=== PATIENT | male | born 1935 | race Caucasian/White ===

== ENCOUNTER 2018-05-07 10:53 | Observation (INO) ==
--- NOTE | 2018-05-07 11:21 | ED ---
HPI General Chief complaint: Chest Pain Stated complaint: Chest pain/sent by doctor Time Seen by Provider: 05/07/18 11:01 Source: patient Mode of arrival: ambulatory Limitations: no limitations History of Present Illness HPI narrative: This 83-year-old male says he been having some left-sided chest pain. In the last 2 days he said about 3 episodes of the pain. Sometimes it lasts a minute sometimes it lasts a little bit more. He is not really noticed anything that brings it on. It is a left-sided chest pain. He has not noted to to be pleuritic. He has noted some swelling of his legs for the past 2 days. He has been feeling a little more short of breath than usual. He has been a smoker in the past but does not smoke for a while. He does have a history of aortic valve replacement in 2001. He went to the doctor's appointment this morning and they did an EKG which showed atrial flutter and he was told to come here. He is not having the pain now Related Data Home Medications Medication Instructions Recorded Confirmed amlodipine 10 mg PO DAILY 05/07/18 05/07/18 aspirin 81 mg PO DAILY 05/07/18 05/07/18 losartan 100 mg PO DAILY 05/07/18 05/07/18 metoprolol tartrate 50 mg PO BID 05/07/18 05/07/18 omega 0-fqt-zhf-fish oil [[place]-3] 1 cap PO DAILY 05/07/18 05/07/18 potassium chloride 8 meq PO DAILY 05/07/18 05/07/18 pravastatin 20 mg PO DAILY 05/07/18 05/07/18 ranitidine HCl [Zantac] 150 mg PO BID 05/07/18 05/07/18 spironolactone 25 mg PO DAILY 05/07/18 05/07/18 terazosin 2 mg PO DAILY 05/07/18 05/07/18 warfarin 5 mg PO DAILY 05/07/18 05/07/18 Allergies Allergy/AdvReac Type Severity Reaction Status Date / Time Iodine and Iodide Containing Allergy Severe Anaphylaxis Verified 05/07/18 11:11 Produc shellfish derived Allergy Severe Anaphylaxis Verified 05/07/18 11:11 Review of Systems ROS: all other systems reviewed are negative Respiratory Reports dyspnea PMFSH Medical History Medical History GERD (gastroesophageal reflux disease) (Acute) Heart murmur (Acute) High cholesterol (Acute) Hypertension (Acute) Surgical History Surgical History Aortic valve replaced (Acute) Social History Social History Substance History: No History of Abuse Second Hand Smoke Exposure: No Smoking Status: Former smoker How Often Do You Have a Drink Containing Alcohol: Monthly or less Recent Travel in [facility] within the Last 8 Weeks: Yes Recent Out of Country Travel within the Last 8 Weeks: No Exam Narrative Exam Narrative: GENERAL: Well-developed male SKIN: Focused skin assessment warm/dry. HEAD: Atraumatic. Normocephalic. EYES: Pupils equal and round. No scleral icterus. No injection or drainage. ENT: No nasal bleeding or discharge. Mucous membranes pink and moist. NECK: Trachea midline. No JVD. CARDIOVASCULAR: Irregular rate and rhythm. No murmur appreciated. RESPIRATORY: No accessory muscle use. Clear to auscultation. Breath sounds equal bilaterally. GASTROINTESTINAL: Abdomen soft, non-tender, nondistended. Hepatic and splenic margins not palpable. MUSCULOSKELETAL: No obvious deformities. No clubbing. No cyanosis. Trace edema. NEUROLOGICAL: Awake and alert. No obvious cranial nerve deficits. Motor grossly within normal limits. Normal speech. PSYCHIATRIC: Appropriate mood and affect; insight and judgment normal. Course Initial Documented Vital Signs Temperature 97.3 F L 05/07/18 11:11 Pulse Rate 56 L 05/07/18 11:11 Respiratory Rate 18 05/07/18 11:11 Blood Pressure 168/72 H 05/07/18 11:11 Pulse Oximetry 98 05/07/18 11:11 Last Documented Vital Signs Temperature 97.3 F L 05/07/18 11:11 Pulse Rate 56 L 05/07/18 14:31 Respiratory Rate 18 05/07/18 14:31 Blood Pressure 156/80 H 05/07/18 14:31 Pulse Oximetry 96 05/07/18 14:31 Medical Decision Making MDM Narrative Medical decision making narrative: This gentleman has history of aortic valve replacement. He has been having some chest discomfort for the last couple of days which is left-sided. The pain lasts from a minute to 15 minutes. It is not exertional. It is somewhat atypical but I feel the patient should be further evaluated. His EKG shows atrial flutter with a controlled rate. He is on metoprolol and warfarin. His Coumadin level is therapeutic. He will be admitted to the chest pain center Medical Screen Exam Complete: Yes Emergency Medical Condition: Yes Differential Diagnosis Differential Diagnosis: Differential includes coronary artery disease, chest wall pain, GERD Lab Data Result diagrams: 05/07/18 11:55 05/07/18 11:55 Lab Results 05/07/18 05/07/18 05/07/18 Range/Units 11:47 11:55 11:55 CBC w Diff Auto diff final WBC 5.3 (4.0-11.0) th/mm3 RBC 3.87 L (4.50-5.90) mil/mm3 Hgb 12.0 L (13.0-17.0) gm/dL Hct 35.9 L (39.0-51.0) % MCV 92.9 (80.0-100.0) fL MCH 31.0 (27.0-34.0) pg MCHC 33.3 (32.0-36.0) % RDW 13.5 (11.6-17.2) % Plt Count 171 (150-450) th/mm3 MPV 8.2 (7.0-11.0) fL Neut % (Auto) 69.9 (16.0-70.0) % Lymph % (Auto) 15.2 (9.0-44.0) % [place] % (Auto) 10.3 H (0.0-8.0) % Eos % (Auto) 3.6 (0.0-4.0) % Baso % (Auto) 1.0 (0.0-2.0) % Neut # (Auto) 3.7 (1.8-7.7) th/mm3 Lymph # (Auto) 0.8 L (1.0-4.8) th/mm3 [place] # (Auto) 0.5 (0.0-0.9) th/mm3 Eos # (Auto) 0.2 (0.0-0.4) th/mm3 Baso # (Auto) 0.1 (0.0-0.2) th/mm3 WBC Differential . Differential Comment . PT (9.8-11.6) sec INR Ratio Sodium (136-145) meq/L Potassium (3.5-5.1) meq/L Chloride (98-107) meq/L Carbon Dioxide (21.0-32.0) meq/L Anion Gap (5-15) meq/L BUN (7-18) mg/dL Creatinine (0.60-1.30) mg/dL Estimated GFR (>89) mL/min Random Glucose (74-106) mg/dL Calcium (8.5-10.1) mg/dL Total Bilirubin (0.2-1.0) mg/dL AST (15-37) U/L ALT (12-78) U/L Alkaline Phosphatase (45-117) U/L Troponin I (0.02-0.05) ng/mL B-Natriuretic Peptide 124 H (0-100) pg/mL Total Protein (6.4-8.2) g/dL Albumin (3.4-5.0) g/dL Ur Collection Type Clean catch Urine Color Straw (Yellw/Straw) Urine Clarity Clear (Clear) Urine pH 6.5 (5.0-8.5) Ur Specific [place] Less/equal 1.005 (1.002-1.035) Urine Protein Negative (Neg-Trace) mg/dL Urine Glucose (UA) Negative (Negative) mg/dL Urine Ketones Negative (Negative) mg/dL Urine Occult Blood Trace (Negative) Urine Nitrate Negative (Negative) Urine Bilirubin Negative (Negative) Urine Urobilinogen 0.2 (Less than 2) mg/dL Ur Leukocyte Esterase Negative (Negative) Urine RBC 0-3 (0-3) /hpf Ur Squamous Epith Cells 0-5 (0-5) /hpf Ur Microscopic Review Microscopic reviewed 05/07/18 05/07/18 Range/Units 11:55 11:55 CBC w Diff WBC (4.0-11.0) th/mm3 RBC (4.50-5.90) mil/mm3 Hgb (13.0-17.0) gm/dL Hct (39.0-51.0) % MCV (80.0-100.0) fL MCH (27.0-34.0) pg MCHC (32.0-36.0) % RDW (11.6-17.2) % Plt Count (150-450) th/mm3 MPV (7.0-11.0) fL Neut % (Auto) (16.0-70.0) % Lymph % (Auto) (9.0-44.0) % [place] % (Auto) (0.0-8.0) % Eos % (Auto) (0.0-4.0) % Baso % (Auto) (0.0-2.0) % Neut # (Auto) (1.8-7.7) th/mm3 Lymph # (Auto) (1.0-4.8) th/mm3 [place] # (Auto) (0.0-0.9) th/mm3 Eos # (Auto) (0.0-0.4) th/mm3 Baso # (Auto) (0.0-0.2) th/mm3 WBC Differential Differential Comment PT 30.5 H (9.8-11.6) sec INR 3.0 Ratio Sodium 140 (136-145) meq/L Potassium 4.0 (3.5-5.1) meq/L Chloride 106 (98-107) meq/L Carbon Dioxide 24.6 (21.0-32.0) meq/L Anion Gap 9 (5-15) meq/L BUN 27 H (7-18) mg/dL Creatinine 1.50 H (0.60-1.30) mg/dL Estimated GFR 45 L (>89) mL/min Random Glucose 94 (74-106) mg/dL Calcium 8.5 (8.5-10.1) mg/dL Total Bilirubin 0.9 (0.2-1.0) mg/dL AST 26 (15-37) U/L ALT 34 (12-78) U/L Alkaline Phosphatase 74 (45-117) U/L Troponin I 0.03 (0.02-0.05) ng/mL B-Natriuretic Peptide (0-100) pg/mL Total Protein 6.9 (6.4-8.2) g/dL Albumin 3.6 (3.4-5.0) g/dL Ur Collection Type Urine Color (Yellw/Straw) Urine Clarity (Clear) Urine pH (5.0-8.5) Ur Specific [place] (1.002-1.035) Urine Protein (Neg-Trace) mg/dL Urine Glucose (UA) (Negative) mg/dL Urine Ketones (Negative) mg/dL Urine Occult Blood (Negative) Urine Nitrate (Negative) Urine Bilirubin (Negative) Urine Urobilinogen (Less than 2) mg/dL Ur Leukocyte Esterase (Negative) Urine RBC (0-3) /hpf Ur Squamous Epith Cells (0-5) /hpf Ur Microscopic Review Imaging Data Radiologist's impression: Chest X-Ray 05/07/18 11:17 CONCLUSION: Cardiomegaly without significant infiltrate or failure. No pleural effusion or pneumothorax. Discharge Plan Discharge Disposition Patient Disposition: 30 Still Patient Physicians Team ED Provider: Matthew Warren Primary Care Provider: Fareed Ibrahim Attending Provider: Dhaval Glaser Status ED Status: Admitted Observation Patient
--- NOTE | 2018-05-07 11:54 | XR ---
EXAM DATE: 05/07/2018 11:17 AM EDT AGE/SEX: 83 years / Male INDICATIONS: Left side chest pain, lower extremity edema, shortness of breath x 2 days. Abnormal EK G in primary's office today. CLINICAL DATA: This is the patient's initial encounter. Patient reports that signs and symptoms have been present for 2 days and indicates a pain score of 5/10. MEDICAL/SURGICAL HISTORY: Gastroesophageal reflux disease. Hypercholesterolemia. Hypertension . Heart murmur. . Aortic valve replacement. COMPARISON: No prior exams available for comparison. FINDINGS: Wires from previous bypass are noted. Heart is enlarged. There is no overt congestive failure, pneumo thorax or pleural effusion. CONCLUSION: Cardiomegaly without significant infiltrate or failure. No pleural effusion or pneumothorax. Electronically signed by: Jamarcus Esquivel MD 05/07/2018 11:52 AM EDT
[2018-05-07 12:11] LABS: Baso # (Auto) 0.1 th/mm3 (0.0-0.2); Eos # (Auto) 0.2 th/mm3 (0.0-0.4); Eos % (Auto) 3.6 % (0.0-4.0); Hematocrit 35.9 % (39.0-51.0); Lymph # (Auto) 0.8 th/mm3 (1.0-4.8); Lymph % (Auto) 15.2 % (9.0-44.0); Mean Corpuscular HGB Conc 33.3 % (32.0-36.0); Mean Corpuscular Volume 92.9 fL (80.0-100.0); Mean Platelet Volume 8.2 fL (7.0-11.0); Mono # (Auto) 0.5 th/mm3 (0.0-0.9); Mono % (Auto) 10.3 % (0.0-8.0); Neut # (Auto) 3.7 th/mm3 (1.8-7.7); Neut % (Auto) 69.9 % (16.0-70.0); Platelet Count 171 th/mm3 (150-450); Red Blood Count 3.87 mil/mm3 (4.50-5.90); Red Cell Distribution Width 13.5 % (11.6-17.2); White Blood Count 5.3 th/mm3 (4.0-11.0)
[2018-05-07 12:15] LABS: Bilirubin,Urine Negative (Negative); Clarity,Urine Clear (Clear); Glucose,Urine (UA) Negative (Negative); Leukocyte Esterase,Urine Negative (Negative); Nitrite,Urine Negative (Negative); PH,Urine 6.5 (5.0-8.5); Specific Gravity,Urine Less/Equal 1.005 (1.002-1.035); Urobilinogen,Urine 0.2 mg/dL (Less than 2)
[2018-05-07 12:17] LABS: Color,Urine Straw (Yellw/Straw)
[2018-05-07 12:21] LABS: RBC,Urine 0-3 /hpf (0-3); Squamous Epithelial Cell,Urine 0-5 /hpf (0-5)
[2018-05-07 12:22] LABS: Chloride 106 meq/L (98-107); Sodium 140 meq/L (136-145)
[2018-05-07 12:24] LABS: Prothrombin Time 30.5 sec (9.8-11.6)
[2018-05-07 12:26] LABS: Albumin 3.6 g/dL (3.4-5.0); Anion Gap 9 meq/L (5-15); Blood Urea Nitrogen 27 mg/dL (7-18); Calcium 8.5 mg/dL (8.5-10.1); Carbon Dioxide 24.6 meq/L (21.0-32.0); Glucose,Random 94 mg/dL (74-106)
[2018-05-07 12:29] LABS: Alanine Aminotransferase 34 U/L (12-78); Aspartate Aminotransferase 26 U/L (15-37); Glomerular Filtration Rate 45 mL/min (>89)
[2018-05-07 12:31] LABS: Total Protein 6.9 g/dL (6.4-8.2)
[2018-05-07 12:32] LABS: Alkaline Phosphatase 74 U/L (45-117)
[2018-05-07 12:34] LABS: Troponin I 0.03 ng/mL (0.02-0.05)
[2018-05-07] MEDS ORDERED: Acetaminophen 500 MG Tablet PO PRN (13:35)
[2018-05-07] MEDS ORDERED: Morphine Sulfate Inj 2 MG/ML Vial IV.PUSH PRN (13:45)
--- NOTE | 2018-05-07 14:17 | P.HP ---
History of Present Illness Primary Care Physician: Fareed Ibrahim MD Chief Complaint: Chest pain History of Present Illness: This is an 83-year-old male patient with a known medical history of hypertension , hyperlipidemia and history of aortic valve replacement who presented to the ED with complaints of left-sided chest pain. Patient states over the course of the 2 days he states he has had roughly 3 episodes of chest discomfort. Patient states that the chest pain is localized to his left chest, does not radiate up his neck arm or back, he states that the pain is characteristically aching in nature, lasts roughly 2-10 minutes and goes away on its own without any known alleviating factors. He states that the pain does get worse intermittently when he is walking. He rates the pain a 3 out of 10 on at its worst on pain scale. Denies any associated nausea, vomiting or sweating. He does admit to intermittent shortness of breath with the pain. Patient denies any recent illness including fevers, chills, cough, shortness of breath, dumping , nausea, vomiting, diarrhea or dysuria. Patient is from [place], [facility] he has been here for over 2 months now. Follows with a cross tie tram loader back home, states he was last seen a couple months ago, denies any new changes to his medications. He does admit to undergoing a cardiac stress test roughly 1 year ago. He states that he would like us to obtain records from his doctor back in [place] and if needed would likely want to undergo a cardiac stress test under his care. We will work him up and rule out ACS with serial EKGs and serial troponins. - Diagnosis (1) Chest pain Review of Systems All other systems reviewed negative except as stated in [facility] PMFSH - History History Provided By: Patient - Medical History Medical History: Medical History (Last Reviewed 05/07/18 @ 14:15 by Suzie Pena) GERD (gastroesophageal reflux disease) Heart murmur High cholesterol Hypertension - Surgical History Surgical History: Surgical History (Last Reviewed 05/07/18 @ 14:15 by Suzie Pena) Aortic valve replaced - Family History Family History: Family History (Last Updated 05/07/18 @ 16:33 by Suzie Pena) Other Family history in first degree relatives is unremarkable - Tobacco History Second Hand Smoke Exposure: No Tobacco Use In Past 30 Days: No Smoking Status: Former smoker - Alcohol History How Often Do You Have a Drink Containing Alcohol: Monthly or less - Substance Use History Substance History: No History of Abuse - Travel History Recent Travel in the [place] Within the Last 8 Weeks: Yes Recent Travel Out of the Country Within the Last 8 Weeks: No - Immunization History Tetanus Immunization: >5 Years Hx Influenza Vaccine This Season: Yes Medications and Allergies Active Medications: Active Medications Acetaminophen (Tylenol) 500 mg PO Q4H PRN PRN Reason: HEADACHE Hydrocodone Bitart/Acetaminophen (Rea 7.5/325) 1 tab PO Q4H PRN PRN Reason: PAIN SCALE 1 TO 7 Amlodipine Besylate (Norvasc) 10 mg PO DAILY COUNTS INCLUDE 234 BEDS AT THE [facility] Aspirin (Aspirin Chew) 81 mg PO DAILY IRENA Famotidine (Pepcid) 20 mg PO BID IRENA Losartan Potassium (Cozaar) 100 mg PO DAILY IRENA Metoprolol Tartrate (Lopressor) 50 mg PO BID IRENA Morphine Sulfate (Morphine Inj) 2 mg IV.PUSH Q4H PRN PRN Reason: PAIN 8-10 Nitroglycerin (Nitrostat Sl) 0.4 mg SL Q5M PRN PRN Reason: CHEST PAIN Ondansetron HCl (Zofran Inj) 4 mg IV.PUSH Q6H PRN PRN Reason: NAUSEA Pravastatin Sodium (Pravachol) 20 mg PO DAILY COUNTS INCLUDE 234 BEDS AT THE [facility] Sodium Chloride (Ns Flush) 2 ml IV.FLUSH BID IRENA Sodium Chloride (Ns Flush) 2 ml IV.FLUSH PRN PRN PRN Reason: FLUSH AFTER USING IV ACCESS Terazosin HCl (Hytrin) 2 mg PO DAILY COUNTS INCLUDE 234 BEDS AT THE [facility] Allergies Allergy/AdvReac Type Severity Reaction Status Date / Time Iodine and Iodide Containing Allergy Severe Anaphylaxis Verified 05/07/18 11:11 Produc shellfish derived Allergy Severe Anaphylaxis Verified 05/07/18 11:11 Home Medications Medication Instructions Recorded Confirmed Type amlodipine 10 mg PO DAILY 05/07/18 05/07/18 History aspirin 81 mg PO DAILY 05/07/18 05/07/18 History losartan 100 mg PO DAILY 05/07/18 05/07/18 History metoprolol tartrate 50 mg PO BID 05/07/18 05/07/18 History omega 7-syb-kpq-fish oil [[place]-3] 1 cap PO DAILY 05/07/18 05/07/18 History potassium chloride 8 meq PO DAILY 05/07/18 05/07/18 History pravastatin 20 mg PO DAILY 05/07/18 05/07/18 History ranitidine HCl [Zantac] 150 mg PO BID 05/07/18 05/07/18 History spironolactone 25 mg PO DAILY 05/07/18 05/07/18 History terazosin 2 mg PO DAILY 05/07/18 05/07/18 History warfarin 5 mg PO DAILY 05/07/18 05/07/18 History Exam Vital signs: Vital Signs 05/07/18 11:11 05/07/18 11:20 05/07/18 13:21 Temperature 97.3 F L Pulse Rate 56 L 56 L 56 L Respiratory Rate 18 18 Blood Pressure 168/72 H 161/77 H Pulse Oximetry 98 98 96 Intake & Output 05/06/18 05/07/18 05/07/18 18:59 06:59 18:59 Weight 109.316 kg Narrative: GENERAL: Well-developed, well-nourished patient in [facility]. SKIN: Warm and dry. No rash. HEAD: Normocephalic. Atraumatic. EYES: Pupils equal and round. No scleral icterus. No injection or drainage. ENT: No nasal bleeding or discharge. Mucous membranes pink and moist. NECK: Supple. Trachea midline. CARDIOVASCULAR: Regular rate and rhythm. S1, S2 noted. No murmur appreciated. No chest pain to palpation RESPIRATORY: No accessory muscle use. Clear to auscultation. Breath sounds equal bilaterally. GASTROINTESTINAL: Abdomen soft, non-tender, nondistended. Normoactive bowel sounds x4. MUSCULOSKELETAL: No obvious deformities. Extremities without clubbing, cyanosis , or edema. NEUROLOGICAL: Awake and alert. No obvious cranial nerve deficits. Motor grossly within normal limits. 5/5 muscle strength in bilateral upper and lower extremities. Normal speech. PSYCHIATRIC: Appropriate mood and affect; insight and judgment normal. Results - Labs CBC & Chem 7: 05/07/18 11:55 05/07/18 11:55 Labs: Laboratory Results - last 24 hr 05/07/18 05/07/18 05/07/18 11:47 11:55 11:55 CBC w Diff Auto diff final WBC 5.3 RBC 3.87 L Hgb 12.0 L Hct 35.9 L MCV 92.9 MCH 31.0 MCHC 33.3 RDW 13.5 Plt Count 171 MPV 8.2 Neut % (Auto) 69.9 Lymph % (Auto) 15.2 [place] % (Auto) 10.3 H Eos % (Auto) 3.6 Baso % (Auto) 1.0 Neut # (Auto) 3.7 Lymph # (Auto) 0.8 L [place] # (Auto) 0.5 Eos # (Auto) 0.2 Baso # (Auto) 0.1 WBC Differential . Differential Comment . PT INR Sodium Potassium Chloride Carbon Dioxide Anion Gap BUN Creatinine Estimated GFR Random Glucose Calcium Total Bilirubin AST ALT Alkaline Phosphatase Troponin I B-Natriuretic Peptide 124 H Total Protein Albumin Ur Collection Type Clean catch Urine Color Straw Urine Clarity Clear Urine pH 6.5 Ur Specific [place] Less/equal 1.005 Urine Protein Negative Urine Glucose (UA) Negative Urine Ketones Negative Urine Occult Blood Trace Urine Nitrate Negative Urine Bilirubin Negative Urine Urobilinogen 0.2 Ur Leukocyte Esterase Negative Urine RBC 0-3 Ur Squamous Epith Cells 0-5 Ur Microscopic Review Microscopic reviewed 05/07/18 05/07/18 11:55 11:55 CBC w Diff WBC RBC Hgb Hct MCV MCH MCHC RDW Plt Count MPV Neut % (Auto) Lymph % (Auto) [place] % (Auto) Eos % (Auto) Baso % (Auto) Neut # (Auto) Lymph # (Auto) [place] # (Auto) Eos # (Auto) Baso # (Auto) WBC Differential Differential Comment PT 30.5 H INR 3.0 Sodium 140 Potassium 4.0 Chloride 106 Carbon Dioxide 24.6 Anion Gap 9 BUN 27 H Creatinine 1.50 H Estimated GFR 45 L Random Glucose 94 Calcium 8.5 Total Bilirubin 0.9 AST 26 ALT 34 Alkaline Phosphatase 74 Troponin I 0.03 B-Natriuretic Peptide Total Protein 6.9 Albumin 3.6 Ur Collection Type Urine Color Urine Clarity Urine pH Ur Specific [place] Urine Protein Urine Glucose (UA) Urine Ketones Urine Occult Blood Urine Nitrate Urine Bilirubin Urine Urobilinogen Ur Leukocyte Esterase Urine RBC Ur Squamous Epith Cells Ur Microscopic Review - Imaging Impressions Chest X-Ray 05/07/18 11:17 CONCLUSION: Cardiomegaly without significant infiltrate or failure. No pleural effusion or pneumothorax. Caprini VTE Risk Assessment Caprini VTE Risk Assessment: Moderate/High Risk (score >= 2) Caprini Risk Assessment Model: Point Value = 1 Point Value = 2 Point Value = 3 Point Value = 5 Age 41-60 Minor surgery BMI > 25 kg/m2 Swollen legs Varicose veins or History of unexplained or recurrent spontaneous Oral contraceptives or hormone replacement Sepsis (< 1 month) Serious lung disease, including pneumonia (< 1 month) Abnormal pulmonary function Acute myocardial infarction Congestive heart failure (< 1 month) History of inflammatory bowel disease Medical patient at bed rest Age 61-74 Arthroscopic surgery Major open surgery (> 45 min) Laparoscopic surgery (> 45 min) Malignancy Confined to bed (> 72 hours) Immobilizing plaster cast Central venous access Age >= 75 History of VTE Family history of VTE Factor V Leiden Prothrombin [id number] Lupus anticoagulant Anticardiolipin antibodies Elevated serum homocysteine Heparin-induced thrombocytopenia Other congenital or acquired thrombophilia Stroke (< 1 month) Elective arthroplasty Hip, pelvis, or leg fracture Acute spinal cord injury (< 1 month) Prophylaxis Regimen: Total Risk Factor Score Risk Level Prophylaxis Regimen 0-1 Low Early ambulation 2 Moderate Order ONE of the following: *Sequential Compression Device (SCD) *Heparin 5000 units SQ BID 3-4 Higher Order ONE of the following medications: *Heparin 5000 units SQ TID *Enoxaparin/Lovenox 40 mg SQ daily (WT < 150 kg, CrCl > 30 mL/min) *Enoxaparin/Lovenox 30 mg SQ daily (WT < 150 kg, CrCl > 10-29 mL/min) *Enoxaparin/Lovenox 30 mg SQ BID (WT < 150 kg, CrCl > 30 mL/min) AND/OR *Sequential Compression Device (SCD) 5 or more Highest Order ONE of the following medications: *Heparin 5000 units SQ TID (Preferred with Epidurals) *Enoxaparin/Lovenox 40 mg SQ daily (WT < 150 kg, CrCl > 30 mL/min) *Enoxaparin/Lovenox 30 mg SQ daily (WT < 150 kg, CrCl > 10-29 mL/min) *Enoxaparin/Lovenox 30 mg SQ BID (WT < 150 kg, CrCl > 30 mL/min) AND *Sequential Compression Device (SCD) Assessment and Plan - Assessment (1) Chest pain Code(s): R07.9 - Chest pain, unspecified Status: Acute - Plan This is an 83-year-old male patient with: Chest pain History of hypertension History of atrial fibrillation on Coumadin History of hyperlipidemia -Patient has been admitted to the chest pain center for observation. Serial EKGs and serial troponins have been ordered for ruling out ACS purposes. -Initial troponin flat, follow trend. EKG reviewed and showing atrial flutter with controlled heart rate. -Chest x-ray reviewed showing no acute abnormality. Cardiomegaly. -Patient will be continued on cardiac telemetry, monitor for any arrhythmias. -CBC and BMP reviewed, essentially unremarkable. -Will continue home medications, monitor BP trends. -Pain control with Rea PO and Morphine IV available as needed per pain scale. Nitroglycerin available as needed. -Records requested from cross tie tram loader back in [place]. Will follow. -Patient does have risk factors for ACS with hypertension, previous aortic valve replacement, hyperlipidemia, age and atrial fibrillation. -He states he would like to undergo a stress test under the care of his cross tie tram loader back home. Will decide tomorrow after looking at records. -Supportive care. Continue to monitor closely. DVT Prophylaxis: SCDs. Coumadin.
[2018-05-07 16:04] LABS: Troponin I 0.02 ng/mL (0.02-0.05)
[2018-05-07 18:38] LABS: Troponin I 0.02 ng/mL (0.02-0.05)
[2018-05-07] MEDS: Metoprolol Tartrate 50 MG Tablet PO SCH (20:13)
[2018-05-07] MEDS: Famotidine 20 MG Tablet PO SCH (20:13)
--- NOTE | 2018-05-07 20:49 | ECG ---
Date Performed: 05/07/2018 Time Performed: 11:11:44 PTAGE: 83 years EKG: ATRIAL FLUTTER/TACHYCARDIA WITH SLOW VENTRICULAR RESPONSE LEFT BUNDLE BRANCH BLOCK ABNORMAL ECG NO PREVIOUS TRACING DOCTOR: Reina Hand Interpretating Date/Time 05/07/2018 20:48:09
[2018-05-08 07:03] LABS: Potassium 3.8 meq/L (3.5-5.1)
[2018-05-08 07:05] LABS: INR 3.1 Ratio; Prothrombin Time 31.1 sec (9.8-11.6)
[2018-05-08 07:06] LABS: Carbon Dioxide 24.5 meq/L (21.0-32.0)
[2018-05-08 08:16] VITALS: O2SAT 95
--- NOTE | 2018-05-08 08:40 | P.PNIM ---
Subjective Interval history: Follow up chest pain. Patient seen and examined, lying in bed comfortably in [facility]. No acute events overnight. Patient denies any current chest pain or any further chest pain overnight. Awaiting lexiscan today. VSS. afebrile. Physical Exam Vital signs: Vital Signs 05/07/18 11:11 05/07/18 11:20 05/07/18 13:20 Temperature 97.3 F L Pulse Rate 56 L 56 L Respiratory Rate 18 Blood Pressure 168/72 H Pulse Oximetry 98 98 96 05/07/18 13:21 05/07/18 14:31 05/07/18 15:35 Temperature 97.4 F L Pulse Rate 56 L 56 L 57 L Respiratory Rate 18 18 18 Blood Pressure 161/77 H 156/80 H 163/77 H Pulse Oximetry 96 96 95 05/07/18 19:54 05/07/18 20:00 05/08/18 00:00 Temperature 96.6 F L 96.3 F L Pulse Rate 66 58 L Respiratory Rate 18 18 Blood Pressure 153/88 H 174/80 H Pulse Oximetry 93 L 92 L 94 L 05/08/18 00:20 05/08/18 04:00 05/08/18 08:15 Temperature 96.4 F L Pulse Rate 67 Respiratory Rate 18 Blood Pressure 157/87 H Pulse Oximetry 97 96 95 Intake & Output 05/07/18 05/08/18 05/08/18 18:59 06:59 18:59 Intake Total 360 / 360 200 / 200 Balance 360 / 360 200 / 200 Weight 109.32 kg 109 kg Intake: Oral 360 / 360 200 / 200 Other: # Voids 2 3 Date of Last Bowel Movement 05/06/18 05/06/18 # Bowel Movements 0 Weight On Admission 109.316 kg Narrative: GENERAL: Well-developed, well-nourished patient in [facility]. SKIN: Warm and dry. No rash. HEAD: Normocephalic. Atraumatic. EYES: Pupils equal and round. No scleral icterus. No injection or drainage. ENT: No nasal bleeding or discharge. Mucous membranes pink and moist. NECK: Supple. Trachea midline. CARDIOVASCULAR: Regular rate and rhythm. S1, S2 noted. No murmur appreciated. No chest pain to palpation RESPIRATORY: No accessory muscle use. Clear to auscultation. Breath sounds equal bilaterally. GASTROINTESTINAL: Abdomen soft, non-tender, nondistended. Normoactive bowel sounds x4. MUSCULOSKELETAL: No obvious deformities. Extremities without clubbing, cyanosis , or edema. NEUROLOGICAL: Awake and alert. No obvious cranial nerve deficits. Motor grossly within normal limits. 5/5 muscle strength in bilateral upper and lower extremities. Normal speech. PSYCHIATRIC: Appropriate mood and affect; insight and judgment normal. Results - Labs CBC & Chem 7: 05/07/18 11:55 05/08/18 05:15 Laboratory Results - last 24 hr 05/07/18 05/07/18 05/07/18 11:47 11:55 11:55 CBC w Diff Auto diff final WBC 5.3 RBC 3.87 L Hgb 12.0 L Hct 35.9 L MCV 92.9 MCH 31.0 MCHC 33.3 RDW 13.5 Plt Count 171 MPV 8.2 Neut % (Auto) 69.9 Lymph % (Auto) 15.2 Catron % (Auto) 10.3 H Eos % (Auto) 3.6 Baso % (Auto) 1.0 Neut # (Auto) 3.7 Lymph # (Auto) 0.8 L Catron # (Auto) 0.5 Eos # (Auto) 0.2 Baso # (Auto) 0.1 WBC Differential . Differential Comment . PT INR Sodium Potassium Chloride Carbon Dioxide Anion Gap BUN Creatinine Estimated GFR Random Glucose Calcium Magnesium Total Bilirubin AST ALT Alkaline Phosphatase Total Creatine Kinase Troponin I B-Natriuretic Peptide 124 H Total Protein Albumin Ur Collection Type Clean catch Urine Color Straw Urine Clarity Clear Urine pH 6.5 Ur Specific Kila Less/equal 1.005 Urine Protein Negative Urine Glucose (UA) Negative Urine Ketones Negative Urine Occult Blood Trace Urine Nitrate Negative Urine Bilirubin Negative Urine Urobilinogen 0.2 Ur Leukocyte Esterase Negative Urine RBC 0-3 Ur Squamous Epith Cells 0-5 Ur Microscopic Review Microscopic reviewed 05/07/18 05/07/18 05/07/18 11:55 11:55 15:38 CBC w Diff WBC RBC Hgb Hct MCV MCH MCHC RDW Plt Count MPV Neut % (Auto) Lymph % (Auto) Catron % (Auto) Eos % (Auto) Baso % (Auto) Neut # (Auto) Lymph # (Auto) Catron # (Auto) Eos # (Auto) Baso # (Auto) WBC Differential Differential Comment PT 30.5 H INR 3.0 Sodium 140 Potassium 4.0 Chloride 106 Carbon Dioxide 24.6 Anion Gap 9 BUN 27 H Creatinine 1.50 H Estimated GFR 45 L Random Glucose 94 Calcium 8.5 Magnesium Total Bilirubin 0.9 AST 26 ALT 34 Alkaline Phosphatase 74 Total Creatine Kinase 91 Troponin I 0.03 0.02 B-Natriuretic Peptide Total Protein 6.9 Albumin 3.6 Ur Collection Type Urine Color Urine Clarity Urine pH Ur Specific Kila Urine Protein Urine Glucose (UA) Urine Ketones Urine Occult Blood Urine Nitrate Urine Bilirubin Urine Urobilinogen Ur Leukocyte Esterase Urine RBC Ur Squamous Epith Cells Ur Microscopic Review 05/07/18 05/08/18 05/08/18 18:11 05:15 05:15 CBC w Diff WBC RBC Hgb Hct MCV MCH MCHC RDW Plt Count MPV Neut % (Auto) Lymph % (Auto) Catron % (Auto) Eos % (Auto) Baso % (Auto) Neut # (Auto) Lymph # (Auto) Catron # (Auto) Eos # (Auto) Baso # (Auto) WBC Differential Differential Comment PT 31.1 H INR 3.1 Sodium 138 Potassium 3.8 Chloride 105 Carbon Dioxide 24.5 Anion Gap 9 BUN 26 H Creatinine 1.40 H Estimated GFR 49 L Random Glucose 91 Calcium 9.0 Magnesium 2.0 Total Bilirubin AST ALT Alkaline Phosphatase Total Creatine Kinase 100 Troponin I 0.02 B-Natriuretic Peptide Total Protein Albumin Ur Collection Type Urine Color Urine Clarity Urine pH Ur Specific Kila Urine Protein Urine Glucose (UA) Urine Ketones Urine Occult Blood Urine Nitrate Urine Bilirubin Urine Urobilinogen Ur Leukocyte Esterase Urine RBC Ur Squamous Epith Cells Ur Microscopic Review - Imaging Impressions Chest X-Ray 05/07/18 11:17 CONCLUSION: Cardiomegaly without significant infiltrate or failure. No pleural effusion or pneumothorax. Assessment and Plan - Assessment (1) Chest pain Code(s): R07.9 - Chest pain, unspecified Status: Acute - Plan This is an 83-year-old male patient with: Chest pain History of hypertension History of atrial fibrillation on Coumadin History of hyperlipidemia -Patient has been admitted to the chest pain center for observation. Serial EKGs and serial troponins have been ordered for ruling out ACS purposes. -ACS ruled out. Troponins flat. EKGs reviewed and showing atrial flutter with controlled heart rate. -Chest x-ray reviewed showing no acute abnormality. Cardiomegaly. -Patient will be continued on cardiac telemetry, monitor for any arrhythmias. None overnight. -CBC and BMP reviewed, essentially unremarkable. -Will continue home medications, monitor BP trends. Stable overnight. -Pain control with [place] PO and Morphine IV available as needed per pain scale. Nitroglycerin available as needed. No need for pain medications overnight. -Records requested from sheriffs detective back in [place]. Will follow. Awaiting records. -Patient does have risk factors for ACS with hypertension, previous aortic valve replacement, hyperlipidemia, age and atrial fibrillation. -Patient will undergo a cardiac lexiscan to further rule out any ischemia. -Further hospitalization and treatment plan will depend on nuclear imaging results. DVT Prophylaxis: SCDs. Coumadin.
[2018-05-08] MEDS: amLODIPine 10 MG Tablet PO SCH ×2 (09:05→12:20)
[2018-05-08] MEDS: Metoprolol Tartrate 50 MG Tablet PO SCH (09:05)
[2018-05-08] MEDS: Famotidine 20 MG Tablet PO SCH (09:05)
[2018-05-08] MEDS ORDERED: Regadenoson Inj 0.4 MG/5 ML Syringe IV.PUSH ONE (10:41)
--- NOTE | 2018-05-08 12:09 | NM ---
EXAM DATE: 05/08/2018 8:50 AM EDT AGE/SEX: 83 years / Male INDICATIONS:Angina. . Left sided chest pain for one day. CLINICAL DATA: This is the patient's initial encounter. Patient reports that signs and symptoms have been present for 1 day and indicates a pain score of 3/10. MEDICAL/SURGICAL HISTORY: Gastroesophageal reflux disease. Hypertension. . Aortic valve replac ement. COMPARISON: No prior exams available for comparison. No external comparison. DOSE: 11.0 mCi Tc 99m Myoview at rest 34.9 mCi [id number] at stress 0.4 mg Lexiscan STRESS SYMPTOMS: Stomach cramps. EJECTION FRACTION: 44 % TECHNIQUE: The patient underwent pharmacologic stress with infusion of prescribed dose. Continuous ECG tracing was monitored during stress. Gated SPECT imaging was performed after stress and conventi onal SPECT imaging was performed at rest. The examination was performed on a SPECT/CT scanner, both attenuation and non-corrected datasets were reviewed. FINDINGS: Distribution: The maximum perfused segment at stress is in the anterior lateral wall. Perfusion Study: The pattern of perfusion at stress is within normal limits. Gated Study: There are intact wall motion and wall thickening without hypokinetic or dyskinetic segm ents. The ejection fraction is calculated at 44%. RISK CATEGORY: Low (<1% Annual Motality Rate) CONCLUSION: 1. Normal wall motion and calculated ejection fraction. 2. No fixed or reversible wall defect to suggest ischemia or infarction. Electronically signed by: Julio Cesar Mora MD 05/08/2018 12:08 PM EDT
[2018-05-08 12:36] VITALS: BP 143/76; PULSE 57; RESP 17; TEMP 97
[2018-05-08] MEDS ORDERED: Non-Formulary Drug (Omega 3-Dha-Epa-Fish Oil [Omega-3] 1 CAP) PO SCH (12:45)
[2018-05-08] MEDS ORDERED: Spironolactone 25 MG Tablet PO SCH (14:00)
--- NOTE | 2018-05-08 15:37 | ECG ---
Date Performed: 05/07/2018 Time Performed: 18:06:08 PTAGE: 83 years EKG: ATRIAL FLUTTER/TACHYCARDIA WITH SLOW VENTRICULAR RESPONSE LEFT BUNDLE BRANCH BLOCK ABNORMAL ECG PREVIOUS TRACING : 05/07/2018 15.30 Since the previous tracing, no significant change noted DOCTOR: Vikki Onofre Interpretating Date/Time 05/08/2018 15:36:42
--- NOTE | 2018-05-08 16:58 | TR ---
Date Performed: 05/08/2018 Time Performed: 11:00:51 DOCTOR: Jazzy Aldrich DRUG LIST: CLINICAL HISTORY: ANGINA REASON FOR TEST: Angina REASON FOR ENDING: OBSERVATION: CONCLUSION: Lexiscan stress test was performed under standard four minute protocol. Radionuclid e was injected one minute prior to ending the test. No electrocardiographic abormalities were present to suggest ischemia. Nuclear imaging and interpretation are pending. COMMENTS: Lexiscan stress test was performed under standard four minute protocol. Radionuclide was injected one minute prior to ending the test. No electrocardiographic abormalities were present t o suggest ischemia. Nuclear imaging and interpretation are pending.
--- NOTE | 2018-05-08 17:24 | ECG ---
Date Performed: 05/07/2018 Time Performed: 15:30:33 PTAGE: 83 years EKG: ATRIAL FLUTTER WITH A SLOW VENTRICULAR RESPONSE LEFT BUNDLE BRANCH BLOCK SINCE PRIOR TRACIN G NO SIGNIFICANT SERIAL CHANGE. ABNORMAL ECG PREVIOUS TRACING : 05/07/2018 11.11 DOCTOR: Vikki Onofre Interpretating Date/Time 05/08/2018 17:23:03
[2018-05-08] MEDS ORDERED: Famotidine 20 MG Tablet PO SCH (21:00)
== END 2018-05-08 13:49 | disposition home or self-care (01) ==
LOC: PHEDA 10:53 → PHED 10:53 → PH3 14:31
PROVIDERS: ADMIT Internal Medicine; ATTEND Internal Medicine